=== PATIENT | female | born 1990 | race Caucasian/White ===

== ENCOUNTER 2019-01-03 10:30 | Emergency (ER) | payer OTHER | END 2019-01-03 13:07 | disposition home or self-care (01) | LOC: FTE 10:30 | DX: S93.402A Sprain of unspecified ligament of left ankle, initial encounter (principal); X50.1XXA Overexertion from prolonged static or awkward postures, initial encounter; Y92.9 Unspecified place or not applicable | CPT/HCPCS: 73610; 99283-25 ==